=== PATIENT | female | born 1990 | race Caucasian/White ===

== ENCOUNTER 2017-08-26 22:41 | Emergency (ER) | payer OTHER ==
[~2017-08-26] VITALS: Ht 167.6 cm; Wt 125.2 kg
[~2017-08-26 22:41] MED LIST: CEPHALEXIN500 MG PO; DIPHENOXYLATE-1 EACH PO; FUROSEMIDE40 MG PO; HYOSCYAMINE0.125 MG PO; IBUPROFEN400 MG PO; IRON325 M1 PO; LASIX20 MG PO; MULTI VITAMIN1 EACH PO; OXYCODONE HCL5 MG PO; PROTONIX40 MG PO; TRAMADOL HCL50 MG PO; ULTRAM50 MG PO; VICOPROFEN 2001 EACH PO; ZOFRAN ODT4 MG PO; ZOFRAN ODT8 MG PO
[2017-08-27] MEDS ORDERED: ZOFRAN ODT4 MG PO (00:51)
== END 2017-08-27 01:07 | disposition home or self-care (01) ==
LOC: ED 22:41
DX: K52.9 Noninfective gastroenteritis and colitis, unspecified (principal); Z88.8 Allergy status to other drugs, medicaments and biological substances; Z79.899 Other long term (current) drug therapy
CPT/HCPCS: 80053; 81001; 83690; 84703; 85025; 85610; 85730; 96361; 96374; 99283; J2405; J7030

== ENCOUNTER 2017-12-02 13:19 | Emergency (ER) | payer OTHER ==
[~2017-12-02] VITALS: Ht 167.6 cm; Wt 125.2 kg
[2017-12-02] MEDS ORDERED: ENULOSE10 GM/15 M PO (15:32)
[2017-12-02] MEDS ORDERED: ZOFRAN ODT4 MG PO (15:32)
== END 2017-12-02 15:40 | disposition home or self-care (01) ==
LOC: ED 13:19
DX: R10.32 Left lower quadrant pain (principal); Z88.6 Allergy status to analgesic agent; Z79.899 Other long term (current) drug therapy
CPT/HCPCS: 74022; 80053; 81001; 83690; 84703; 85025; 96374; 96375; 99283; J1885; J2405; J7030